=== PATIENT | male | born 1940 | race Caucasian/White ===

== ENCOUNTER 2016-10-21 07:24 | Day surgery (SDC) | payer MEDICARE, OTHER ==
[2016-10-21] VITALS (10 sets, daily range): BP systolic 105–141; BP diastolic 65–85; PULSE 55–67; RESP 13–17; O2SAT 95–100
[~2016-10-21] VITALS: Ht 195.6 cm; Wt 104.3 kg
[~2016-10-21 07:24] MED LIST: AMLO5TAB2 PO; ASPI-973 PO; BIMA2.5D5 AFFECT_EYE; CeFAZolin Inj 2 GM in IV Premix 1 EACH IV ONE; LEVO50TA6 PO; LOSA100T29 PO; Lactated Ringer's 1,000 ML IV ONE; MELA1TAB16 PO; OMEP20CA11 PO; PRAV40TA PO
[2016-10-21] MEDS ORDERED: Glycopyrrolate 0.2 MG/ML 1mL Inj ONE (07:25)
[2016-10-21] MEDS ORDERED: Propofol 10,000 mCg/mL 20 mL Inj ONE (07:25)
[2016-10-21] MEDS ORDERED: EPHEDrine/NS 5 mg/mL 5 mL Syringe ONE (07:25)
[2016-10-21] MEDS ORDERED: Dexamethasone 4 mg/mL Inj ONE (07:25)
[2016-10-21] MEDS ORDERED: Ondansetron 2 mg/mL 2 mL Inj ONE (07:25)
[2016-10-21] MEDS ORDERED: fentaNYL-PF 50 mCg/mL 2 mL Inj ONE (07:25)
[2016-10-21] MEDS ORDERED: VIT B12 PO (08:04)
[2016-10-21] MEDS ORDERED: ALPH200C3 PO (08:04)
[2016-10-21] MEDS ORDERED: OMEG500C PO (08:04)
[2016-10-21] MEDS ORDERED: VIT D PO (08:04)
[2016-10-21] MEDS ORDERED: MULT-1018 PO (08:04)
[2016-10-21] MEDS ORDERED: Lactated Ringer's 500 ML IV PRN (09:58)
[2016-10-21] MEDS ORDERED: Lactated Ringer's 1,000 ML IV SCH (09:58)
--- NOTE | 2016-10-21 09:58 | PCM.HPANE ---
Patient Data Surgeon Admitting Provider: Attending Provider:Husam Walters MD Primary Care Physician:Ren Rodrigues MD Other Provider:Timo Cruz Anesthesia Reason for Visit Left Carpal Tunnel Syndrome Ht/WT & BMI Height (Feet): 6 Height (Inches): 5.00 Weight (Kilograms): 104.300 Body Mass Index 27.00 Allergies Coded Allergies: No Known Allergies (Unverified , 10/18/16) Past Anesthesia History Anesthesia History: Denies:: Abnormal Airway, Anesthesia Reactions, Difficult Intubation, Fam Anesthesia Reaction, Fam Malignant Hypertherm, Malignant Hyperthermia Diabetes History Hx Diabetes?: No MRSA MRSA: No Medications Blood Thinner: Aspirin Hypertension Medication: Yes (AMLODIPINE,LOSARTAN) Home Meds Incl Beta Saravanan: No Reported Medications [Vit D] No Conflict Check Po Daily 10/21/16 Alpha Lipoic Acid 200 Mg [id number] Mg PO DAILY 10/21/16 [Vit B12] No Conflict Check Po Daily 10/21/16 Arvin-3 Fatty Acids (Fish Oil)500 Mg Capsule.dr500 Mg PO 10/21/16 Multivitamin (Multi Vitamin Daily)1 Each Tablet1 Each PO DAILY 30 Days Ref 0 10/21/16 Pravastatin 40 Mg Cxyvkn43 Mg PO DAILY Ref 0 10/18/16 Omeprazole 20 Mg Capsule.dr20 Mg PO DAILY Ref 0 10/18/16 Melatonin/Pyridoxine (Melatonin 5 mg Tablet)1 Each Tablet1 Each PO HS 10/18/16 Bimatoprost (Lumigan)45 Drop/2.5 Ml Ophsoln1-2 Drop AFFECT_EYE HS #1 BOTTLE 10/18/16 Losartan Potassium 100 Mg [id number] Mg PO DAILY 10/18/16 Levothyroxine 50 Mcg Yepplh35 Mcg PO DAILY Ref 0 10/18/16 Aspirin 81 Mg Ldjptf31 Mg PO DAILY Ref 0 10/18/16 Amlodipine 5 Mg Tablet5 Mg PO DAILY Ref 0 10/18/16 History History of ENT Problems?: Yes HEENT History: Positive for:: Glaucoma Denies:: Abnormal Airway Cataracts Difficult Intubation Dysphagia Hearing Problem Sinus Problem TMJ Denture Type: None Teeth Condition: Within Normal Limits Hx of Heart Problems?: Yes Cardiovascular History: Positive for:: Hypertension (HYPERLIPIDEMIA) Irregular Heartbeat ("IRREGULARLY IRREGULAR" NOTED IN PREOP EXAM/EKG=Shahab VARELA ; regular rhythm, no noted history of afib) Denies:: Heart Murmur Valvular Heart Disease Hx of Respiratory Problem?: Yes Respiratory History: Denies:: Chest Surgery (CXR 10/2016 SHOWS OPACITY MID LT LUNG-CT RECOMMENDED) Use of C-PAP Machine Hx Neurologic Problems?: Yes Other Neurological Pertinent: C/OF POLYNEUROPATHY Hx of GI Problems?: Yes Hx of Problems?: No Male Hx: Positive for:: Prostate Problems (HX PROSTATE CA TX W/ BRACHYTHERAPY) Denies:: Scrotal Mass Testicular Surgery Skin History: Positive for:: History Skin Disorders? (ACTINIC KERATOSIS-SCALP) Denies:: Pressure Ulcers Hx Musculoskeletal Problems?: Yes Hx of Psycho/Social Problems?: No Hx Surgeries?: Yes (ANAL FISSURE RPR, PROSTATE BRACHYTHERAPY) Hx Any Other Health Problems?: Yes Other History: Positive for:: Cancer (PROSTATE) Thyroid Disease Denies:: Endocrine Disease Hospitalization History Blood Transfusions: Denies:: Blood Transfusions Hx Diabetes: No Hx Substance Use: NoHave You Smoked inLast 12 mo: No Stop/Bang S-Snoring: Do You Snore Loudly: No T-Tired: feel tired, fatigued: No O-Obsered: Observed not breath: No P-Blood Pressure: treated: Yes B- Body Mass Index > 35 kg/m2: No A- Age over 50: Yes N- Neck Large Circumference: No G- Gender Male: Yes FITO Total Score: 3 FITO Risk Assessment: High Risk, =/>3 Yes Risk Assessment Category Category 1A: Patient has history of documented sleep apnea, and HAS NOT received any narcotic, sedative or anesthesia administration during this stay. Category 1B: Patient has history of documented sleep apnea, and HAS received any narcotic , sedative or anesthesia administration during this stay Category 2: Patient has SUSPECTED Obstructive Sleep Apnea, and HAS received any narcotic , sedative or anesthesia administration during this stay. Category 3: Patient has SUSPECTED Obstructive Sleep Apnea and HAS NOT received narcotic, sedative or anesthesia administration during this stay. Category 4: Outpatient in Procedural Areas with known sleep apnea or who screen positive for High Risk via the STOP/BANG questionnaire. Exam Exam Vital Signs Vital Signs Date Time Temp Pulse Resp B/P Pulse Ox O2 Delivery O2 Flow Rate FiO2 10/21/16 07:50 35.5 60 15 141/85 98 Room Air 10/21/16 07:43 35.5 60 15 141/85 98 Room Air General Appearance: Alert, Oriented X3, Cooperative, No Acute Distress HEENT/AIRWAY: MP 2 Lungs: Clear to Auscultation, Normal Air Movement Heart: Exam Unremarkable, Regular Rate/Rhythm, No Murmurs/Rubs/Gallops Meds/Labs/Diagnostics Admission Meds Current Medications Lactated Ringer's (Lr) 1,000 ml @ 120 mls/hr Q8H20M ONCE IV Last administered on 10/21/16t 07:30; Start 10/21/16 at 00:53; Stop 10/21/16 at 09:12; Status DC Plan Impression Patient chart reviewed, patient interviewed and anesthestic plan with risks, benefits, and alternatives discussed, and informed consent obtained. NPO per Anesth. Guidelines: Yes ASA Physical Status: ASA2 Mod Systemic Disease Anesthetic Plan: GA Bene/Risks/Altern/Consents: Yes HP Complete Prior to Induction: Yes Jeff Bernard MD Oct 21, 2016 09:58
[2016-10-21] MEDS ORDERED: HYDROmorphone 1 mg/mL Inj IVPUSH PRN (10:00)
[2016-10-21] MEDS ORDERED: Atropine 0.4 mg/mL Inj IVPUSH PRN (10:00)
[2016-10-21] MEDS ORDERED: EPHEDrine Sulfate 50 mg/mL Inj IVPUSH PRN (10:00)
[2016-10-21] MEDS ORDERED: Phenylephrine 10,000 mCg/mL Inj IVPUSH PRN (10:00)
[2016-10-21] MEDS ORDERED: MetoCLOpramide 5 mg/mL 2 mL Inj IVPUSH PRN (10:00)
[2016-10-21] MEDS ORDERED: fentaNYL-PF 50 mCg/mL 2 mL Inj IVPUSH PRN (10:00)
[2016-10-21] MEDS ORDERED: Ondansetron 2 mg/mL 2 mL Inj IVPUSH PRN (10:00)
[2016-10-21] MEDS ORDERED: Labetalol 5 mg/mL 4 mL Inj IV PRN (10:00)
[2016-10-21] MEDS ORDERED: Bupivacaine-MPF 0.5% 30 mL Inj INFILTRATE ONE (10:54)
[2016-10-21] MEDS ORDERED: oxyCODONE-Acetamin 5-325 mg Tablet PO PRN (11:20)
--- NOTE | 2016-10-21 11:29 | PCM.ANEP1 ---
Post Anesthesia Phase 1 PACU Phase 1 Assessment Vital Signs Vital Signs Date Time Temp Pulse Resp B/P Pulse Ox O2 Delivery O2 Flow Rate FiO2 10/21/16 11:25 59 17 127/71 100 Room Air 10/21/16 11:20 60 16 126/70 99 Simple Mask 8 10/21/16 11:15 65 15 120/72 99 Simple Mask 8 10/21/16 11:12 36.2 67 14 105/65 99 Simple Mask 8 10/21/16 07:50 35.5 60 15 141/85 98 Room Air 10/21/16 07:43 35.5 60 15 141/85 98 Room Air Anesthetic Administered: GA Level of Alertness: Awake, talking VOSS's with Equal Strength: Yes Pain: No Nausea or Vomiting: No Oxygen Delivery: Simple Mask Lungs: Clear to Auscultation, Normal Air Movement Complications: No Follow up Care: No Patient Instructions Provided: Yes (per RN) Jeff Bernard MD Oct 21, 2016 11:29
--- NOTE | 2016-10-21 14:14 | OP ---
[address] [address] OPERATIVE REPORT PATIENT: SEVERO DASILVA : 1940 MR#: [id number] ADMIT: 10/21/2016 JOB ID: [id number] DATE OF SURGERY: 10/21/2016 PREOPERATIVE DIAGNOSIS(ES): Left carpal tunnel syndrome. ICD 10 code G 56.02. POSTOPERATIVE DIAGNOSIS(ES): Left carpal tunnel syndrome. ICD 10 code G 56.02. PROCEDURE: Left carpal tunnel release. CPT code 18281. SURGEON: Dr. Husam Walters. HIGH SCHOOL ASSISTANT PRINCIPAL: None. ANESTHESIA: General. ESTIMATED BLOOD LOSS: 2 mL. DRAINS: None. COMPLICATIONS: None. INDICATIONS: This is a 76-year-old left-hand dominant male with severe left carpal tunnel syndrome documented on EMG with motor and sensory delays. The patient had chronic numbness in the fingers in the median nerve distribution. PROCEDURE IN DETAIL: Under adequate general anesthesia, a well-padded tourniquet was applied to the left upper extremity. Left arm was prepped and draped in a sterile fashion. After appropriate time-out was called, the left arm was elevated, exsanguinated, tourniquet inflated at 250 mmHg. A curvilinear incision was fashioned just ulnar to the thenar crease. Care was taken to protect the palmar cutaneous branch of the median nerve. The palmar fascia was incised. Proximal portion of the transverse carpal ligament was incised in a small area proximally. An elevator was placed underneath the level of the transverse carpal ligament and the transverse carpal ligament was released in a proximal to distal direction taking care to protect the median nerve underneath. Care was taken to protect the ulnar nerve and artery more ulnarward and care was taken to protect the superficial palmar arch distally as well as the recurrent motor branch of the median nerve. The nerve was noted to be thickened with an hourglass deformity. Attention was next turned to the antebrachial cutaneous fascia. The skin was elevated from the subcutaneous tissue. Utilizing a [place] elevator to protect the nerve, the wrist was placed in slight flexion to protect the nerve and the antebrachial cutaneous fascia was released under direct visualization with retractors on the skin. The wound was irrigated with saline and infiltrated the skin with 0.5% plain Marcaine. The tourniquet was released. Minimal hemostasis required. The nerve was noted to be hyperemic after the tourniquet was released and very edematous. Minimal hemostasis was required. Closure of the skin was reapproximated with horizontal mattress sutures of 4-0 nylon. Xeroform dry sterile dressing was applied. The patient was placed in a well-padded short-arm fiberglass splint. PLAN: The patient will be seen back in the office in two weeks with suture removal. He is to keep the arm elevated intermittently to decrease swelling and encouraged to do gentle finger motion but no heavy gripping or lifting. Should be able to be changed back to a removable Velcro wrist support in two weeks and just use that wrist support for an additional couple of weeks, particularly at nighttime and driving. I again encouraged him not to do any heavy lifting or gripping for a total of about six weeks. CC: [facility] CC: Denys Wu
== END 2016-10-21 23:59 | disposition home or self-care (01) ==
LOC: SAS 07:24
PROVIDERS: ATTEND Orthopaedic Surgery
DX: G56.02 Carpal tunnel syndrome, left upper limb (principal); I10 Essential (primary) hypertension; E78.5 Hyperlipidemia, unspecified; K21.9 Gastro-esophageal reflux disease without esophagitis; E03.9 Hypothyroidism, unspecified; E78.00 Pure hypercholesterolemia, unspecified; Z85.46 Personal history of malignant neoplasm of prostate; Z79.82 Long term (current) use of aspirin
CPT/HCPCS: 64721; J0690; J1100; J1885; J2405; J3010; J7120